=== PATIENT | male | born 1965 | race Caucasian/White ===

== ENCOUNTER 2022-03-12 09:26 | Observation (INO) | payer OTHER ==
[2022-03-12 09:36] VITALS: BMI 26.9
[2022-03-12 10:55] LABS: BASO % 0.4 % (0-2.0); EOS % 2.9 % (0-4.5); HEMATOCRIT 42.2 % (35.4-49); HEMOGLOBIN 14.3 GM/dL (11.7-16.9); LYMPH % 23.8 % (8-40); MCH 29.1 pg (25.7-33.7); MEAN CELL VOLUME 85.7 fl (80-96); MEAN PLT VOLUME 9.3 fl (7.5-11.1); MONO % 8.4 % (3.8-10.2); NEUT % 64.5 % (42.8-82.8); PLATELET COUNT 179 10^3/uL (134-434); RBC 4.92 M/mm3 (4.00-5.60); RDW 13.5 % (11.9-15.9); WHITE BLOOD COUNT 6.1 K/mm3 (4.0-10.0)
[2022-03-12 11:18] LABS: CALCIUM 8.8 mg/dL (8.5-10.1)
[2022-03-12 11:19] LABS: ALBUMIN 4.1 g/dl (3.4-5.0); BLOOD UREA NITROGEN 19.5 mg/dL (7-18)
[2022-03-12 11:22] LABS: CREATININE 0.6 mg/dL (0.55-1.3)
[2022-03-12 11:23] LABS: TOT PROT 7.2 g/dl (6.4-8.2)
[2022-03-12 11:24] LABS: BILIRUBIN,TOTAL 0.5 mg/dL (0.2-1)
[2022-03-12] MEDS ORDERED: ASPIRIN 325 MG ENTERIC COATED TABLET (FP) PO ONE (11:42)
[2022-03-12] MEDS ORDERED: ASPIRIN 325 MG ENTERIC COATED TABLET (FP) ONE (11:43)
[2022-03-13] MEDS ORDERED: ACETAMINOPHEN 500 MG TABLET (FP) PO PRN (03:47)
[2022-03-13 07:02] LABS: BASO % 0.4 % (0-2.0); EOS % 2.8 % (0-4.5); HEMATOCRIT 40.8 % (35.4-49); LYMPH % 24.6 % (8-40); MCH 29.2 pg (25.7-33.7); MCHC 34.3 g/dl (32.0-35.9); MEAN PLT VOLUME 9.1 fl (7.5-11.1); MONO % 7.6 % (3.8-10.2); NEUT % 64.6 % (42.8-82.8); PLATELET COUNT 163 10^3/uL (134-434); RBC 4.79 M/mm3 (4.00-5.60); RDW 13.5 % (11.9-15.9); WHITE BLOOD COUNT 7.7 K/mm3 (4.0-10.0)
[2022-03-13 07:27] LABS: CALCIUM 8.4 mg/dL (8.5-10.1)
[2022-03-13 07:28] LABS: ALBUMIN 3.7 g/dl (3.4-5.0); BLOOD UREA NITROGEN 17.4 mg/dL (7-18); MAGNESIUM 2.3 mg/dL (1.8-2.4)
[2022-03-13 07:31] LABS: CREATININE 0.6 mg/dL (0.55-1.3); PHOSPHOROUS 3.2 mg/dL (2.5-4.9)
[2022-03-13 07:32] LABS: BILIRUBIN,TOTAL 0.5 mg/dL (0.2-1); TOT PROT 6.5 g/dl (6.4-8.2)
[2022-03-13 09:19] VITALS: BP 124/75; PULSE 66; RESP 16; TEMP 98.6
[2022-03-13] MEDS ORDERED: ENOXAPARIN NA (PORCINE) 40 MG/0.4 ML DISP.SYRIN SQ SCH (10:00)
[2022-03-13] MEDS ORDERED: ASPIRIN 81 MG CHEWABLE TABLETS PO SCH (10:00)
[2022-03-13] MEDS ORDERED: ATORVASTATIN CA 40 MG TABLET (FP) PO SCH (22:00)
== END 2022-03-13 13:45 | disposition home or self-care (01) ==
LOC: JER 09:26 → JERBED 12:01 → J4W 23:03
PROVIDERS: ADMIT Internal Medicine; ATTEND Internal Medicine
PROC: 3E023GC Introduction of Other Therapeutic Substance into Muscle, Percutaneous Approach (ICD-10-PCS; principal; 2022-03-12)
DX: I24.9 Acute ischemic heart disease, unspecified (principal); I10 Essential (primary) hypertension; E78.5 Hyperlipidemia, unspecified
CPT/HCPCS: 36415; 71046-TC-FY; 80053; 83735; 84100; 84484; 85025; 85379; 93005; 93010; 96372; 99285-25; C9803-CS; G0378; U0003; U0005

== ENCOUNTER 2024-12-06 11:11 | Emergency (ER) | payer OTHER ==
[2024-12-06 11:32] VITALS: TEMP 98.4; BMI 24.4
[2024-12-06] MEDS ORDERED: ACETAMINOPHEN INJECTION 100 ML ONE (12:14)
[2024-12-06] MEDS ORDERED: FAMOTIDINE 20 MG/50 ML IVPB 20 MG/50 ML MG IVPB ONE (12:14)
[2024-12-06] MEDS ORDERED: ONDANSETRON 4 MG/2 ML VIAL ONE (12:14)
[2024-12-06] MEDS: FAMOTIDINE 20 MG/50 ML IVPB 20 MG/50 ML MG IVPB ONE (12:33)
[2024-12-06] MEDS: SODIUM CHLORIDE 1,000 ML IV STA (12:33)
[2024-12-06] MEDS: ONDANSETRON 4 MG/2 ML VIAL IVPUSH ONE (12:33)
[2024-12-06] MEDS: ACETAMINOPHEN 1000 MG/100 ML BAG IVPB ONE (12:33)
[2024-12-06 12:44] LABS: ABSOLUTE IMMATURE GRANULOCYTES 0.02 x10^3/uL (0.0-0.031); BASOPHILS # 0.04 x10^3/uL (0.01-0.08); EOSINOPHIL % 2.5 % (0.8-7.0); EOSINOPHILS # 0.15 x10^3/uL (0.04-0.54); HEMATOCRIT 45.4 % (40.1-51.0); HEMOGLOBIN 15.2 g/dL (13.7-17.5); MCHC 33.5 g/dl (32.3-36.5); MEAN CELL VOLUME 87.1 fl (79.0-92.2); MEAN PLT VOLUME 10.4 fl (9.4-12.4); MONOCYTE # 0.46 x10^3/uL (0.30-0.82); MONOCYTE % 7.5 % (5.3-12.2); PLATELET COUNT 201 x10^3/uL (163-337)
[2024-12-06 13:21] LABS: POTASSIUM 3.9 mmol/L (3.5-5.1)
[2024-12-06 13:24] LABS: MAGNESIUM 2.3 mg/dL (1.8-2.4)
[2024-12-06 13:25] LABS: ALBUMIN 4.4 g/dl (3.4-5.0)
[2024-12-06 13:27] LABS: CREATININE 0.7 mg/dL (0.55-1.3)
[2024-12-06 13:28] LABS: BILIRUBIN,TOTAL 0.7 mg/dL (0.2-1)
[2024-12-06 13:29] LABS: TOT PROT 7.6 g/dl (6.4-8.2)
[2024-12-06 14:05] LABS: HCV DIAGNOSTIC IN-HOUSE W/RFLX NON-REACTIVE (NONREACTIVE); HIV INTERPRETATION NEGATIVE (NEGATIVE)
[2024-12-06 14:22] VITALS: BP 142/80; PULSE 65; RESP 17
== END 2024-12-06 14:22 | disposition home or self-care (01) ==
LOC: JER 11:11
PROC: 3E033GC Introduction of Other Therapeutic Substance into Peripheral Vein, Percutaneous Approach (ICD-10-PCS; principal; 2024-12-06)
PROC: 3E033GC Introduction of Other Therapeutic Substance into Peripheral Vein, Percutaneous Approach (ICD-10-PCS; 2024-12-06)
PROC: 3E033NZ Introduction of Analgesics, Hypnotics, Sedatives into Peripheral Vein, Percutaneous Approach (ICD-10-PCS; 2024-12-06)
DX: R42 Dizziness and giddiness (principal); R11.0 Nausea; K14.8 Other diseases of tongue
CPT/HCPCS: 36415; 71045-TC-FY; 80053; 82962; 83690; 83735; 84439; 84443; 84484; 85025; 86803; 87389; 93005; 93010; 99285-25